=== PATIENT | female | born 1995 | race Caucasian/White ===

== ENCOUNTER 2018-07-30 16:34 | Inpatient (IN) | payer OTHER ==
--- NOTE | 2018-07-30 16:49 | PDOC ---
Rapid Medical Evaluation Chief Complaint: Abnormal Lab Results (Outside) Time Seen by Provider: 07/30/18 16:46 Medical Evaluation: Allergies Allergy/AdvReac Type Severity Reaction Status Date / Time No Known Allergies Allergy Verified 10/29/12 16:27 07/30/18 16:48 I have performed a brief in person evaluation at triage on this patient. CC: Anemia HPI: Pt was sent here by her PCP for a blood transfusion as she is "severely anemic." PE: Skin: clear Lungs: clear Heart: RRR MS: Moves all extremities without difficulty Neuro: Alert and oriented Psych: Appropriate affect I have ordered: basic labs with Type and Cross Pt will proceed to the main ED for further evaluation. Discharge Disposition - Diagnosis Anemia Qualifiers: Anemia type: unspecified type Qualified Code(s): D64.9 - Anemia, unspecified - Referrals - Patient Instructions - Post Discharge Activity
[2018-07-30 17:23] LABS: BASO % 1.5 % (0-2.0); HEMATOCRIT 21.7 % (32.4-45.2); LYMPH % 38.7 % (8-40); MCH 18.3 pg (25.7-33.7); MCHC 28.8 g/dl (32.0-36.0); MEAN CELL VOLUME 63.6 fl (80-96); MEAN PLT VOLUME 8.8 fl (7.5-11.1); MONO % 5.9 % (3.8-10.2); NEUT % 51.9 % (42.8-82.8); PLATELET COUNT 197 K/MM3 (134-434); RBC 3.42 M/mm3 (3.60-5.2); WHITE BLOOD COUNT 4.5 K/mm3 (4.0-10.0)
[2018-07-30 17:26] LABS: HEMOGLOBIN 6.3 GM/dL (10.7-15.3)
[2018-07-30 17:45] LABS: ALBUMIN 4.5 g/dl (3.4-5.0); ALK PHOS 45 U/L (45-117); ANION GAP 10 MMOL/L (8-16); BILIRUBIN,TOTAL 0.7 mg/dL (0.2-1); BLOOD UREA NITROGEN 10 mg/dL (7-18); CALCIUM 9.6 mg/dL (8.5-10.1); CHLORIDE 104 mmol/L (98-107); CO2 23 mmol/L (21-32); CREATININE 0.6 mg/dL (0.55-1.3); GLUCOSE,RANDOM 73 mg/dL (74-106); POTASSIUM 3.7 mmol/L (3.5-5.1); SGOT/AST 18 U/L (15-37); SGPT/ALT 17 U/L (13-61); SODIUM 137 mmol/L (136-145); TOT PROT 8.2 g/dl (6.4-8.2)
[2018-07-30 19:56] LABS: ANISOCYTOSIS 3+; MACROCYTOSIS 2+; PLATELET ESTIMATE ADEQUATE
--- NOTE | 2018-07-31 10:34 | EKG ---
Test Reason : Blood Pressure : / mmHG Vent. Rate : 077 BPM Atrial Rate : 077 BPM P-R Int : 142 ms QRS Dur : 074 ms QT Int : 412 ms P-R-T Axes : 049 064 035 degrees QTc Int : 466 ms NORMAL SINUS RHYTHM NORMAL ECG NO PREVIOUS ECGS AVAILABLE Confirmed by MARIYA ORDAZ, MARILUZ ([id number]) on 07/31/2018 10:33:59 AM Referred By: Confirmed By:MARILUZ MERAZ MD
--- NOTE | 2018-07-31 13:40 | ECHO ---
Name: WAGNER MONTEZ Exam:Adult Echocardiogram Study Date: 07/31/2018 09:22 AM Age: 23 yrs Reason For Study: Chest pain Height: 63 in Weight: 114 lb BSA: 1.5 m2 MMode/2D Measurements & Calculations IVSd: 0.68 cm Ao root diam: 2.1 cm LVIDd: 4.9 cm LA dimension: 3.1 cm LVIDs: 3.1 cm LVPWd: 0.77 cm EDV(Teich): 113.7 ml LVOT diam: 1.9 cm ESV(Teich): 38.1 ml Doppler Measurements & Calculations MV E max rell: 80.5 cm/sec Ao V2 max: 129.9 cm/sec MV A max rell: 50.3 cm/sec Ao max P.8 mmHg MV E/A: 1.6 Ao V2 mean: 95.8 cm/sec MV dec time: 0.15 sec Ao mean P.0 mmHg Ao V2 VTI: 28.7 cm ADEEL(I,D): 1.8 cm2 ADEEL(V,D): 1.8 cm2 LV V1 max P.7 mmHg MR max rell: 440.9 cm/sec LV V1 mean P.2 mmHg MR max P.7 mmHg LV V1 max: 82.7 cm/sec LV V1 mean: 49.9 cm/sec LV V1 VTI: 18.1 cm SV(LVOT): 52.3 ml TR max rell: 189.7 cm/sec TR max P.7 mmHg Med Peak E' Rell: 12.7 cm/sec Med E/e': 6.4 Lat Peak E' Rell: 17.5 cm/sec Lat E/e': 4.6 Procedure A two-dimensional transthoracic echocardiogram with color flow and Doppler was performed. The study w as technically difficult with many images being suboptimal in quality. Left Ventricle The left ventricular size, thickness and function are normal. The left ventricular ejection fraction is normal. Left Ventricular Filling pattern is normal for age. Regional wall motion abnormalities cannot be excluded due to limited visualization. Right Ventricle The right ventricle is not well visualized. Atria Normal left and right atrial size and function. Mitral Valve The mitral valve is not well visualized. There is no mitral valve stenosis. There is moderate to lynda re mitral regurgitation. Tricuspid Valve The tricuspid valve is not well visualized. There is no tricuspid stenosis. There is trace tricuspid regurgitation. Right ventricular systolic pressure is normal. Aortic Valve The aortic valve is not well visualized. No hemodynamically significant valvular aortic stenosis. No aortic regurgitation is present. Pulmonic Valve The pulmonic valve is not well visualized. Great Vessels The aortic root is normal size. Pericardium/Pleura There is no pericardial effusion. Interpretation Summary Regional wall motion abnormalities cannot be excluded due to limited visualization. There is moderate to severe mitral regurgitation. Right ventricular systolic pressure is normal. The left ventricular size, thickness and function are normal The left ventricular ejection fraction is normal. Left Ventricular Filling pattern is normal for age. The study was technically difficult with many images being suboptimal in quality. MD Tai Cardenas 07/31/2018 01:40 PM
[2018-07-31] MEDS ORDERED: MAG HYDROX/AL HYDROX/SIMETH 30 ML UNIT-DOSE CUP ONE (14:25)
--- NOTE | 2018-07-31 16:08 | HP ---
Admitting History and Physical - Past Medical History ...LMP: 12/14/17 ...: No - Smoking History Smoking history: Never smoked Have you smoked in the past 12 months: No Aproximately how many cigarettes per day: 0 - Alcohol/Substance Use Hx Alcohol Use: Yes Home Medications - Allergies Allergies/Adverse Reactions: Allergies Allergy/AdvReac Type Severity Reaction Status Date / Time No Known Allergies Allergy Verified 07/30/18 16:47 - Home Medications Home Medications: Ambulatory Orders No Home Medications 0 dose .ROUTE UTDICT 10/29/12 Physical Examination Vital Signs: Vital Signs Temperature 98.6 F 07/31/18 15:37 Pulse Rate 90 07/31/18 15:37 Respiratory Rate 18 07/31/18 15:42 Blood Pressure 106/72 07/31/18 15:37 O2 Sat by Pulse Oximetry (%) 98 07/31/18 15:42 Labs: CBC, BMP 07/30/18 17:09 07/30/18 17:09
--- NOTE | 2018-07-31 17:02 | PN ---
Teaching Attending Note Name of Resident: Franco Plascencia ATTENDING PHYSICIAN STATEMENT I saw and evaluated the patient. I reviewed the resident's note and discussed the case with the resident. I agree with the resident's findings and plan as documented. SUBJECTIVE: Patient seen and examined 23 year old with iron deficiency Denies blood per rectum or melena. Has menses 3-4 x per year - LMP in December 2017 . Menses x 7 days with clots. Has migraines and recently with increased headaches. Takes 2 advil - 1-2 x daily with headaches. Most recently 4-5 x per week/ Presented with increasing shortness of breath and fatigue. Presented with Hb- 6.3 an has received 2 units of packed cells. Has ferritin of 3. Family history -negative for hematologic disorder. Grandmother with cervical cancer. ROS - positive for SOB, dyspnea, fatigue; Irregular periods Last Vital Signs Temp Pulse Resp BP Pulse Ox 98.6 F 90 18 106/72 98 07/31/18 15:37 07/31/18 15:37 07/31/18 15:42 07/31/18 15:37 07/31/18 15:42 HEENT: MERCY, EOM Intact Oropharynx: No thrush, No mucositis Neck: Supple Nodes: Without adenopathy Breasts: Without masses Cor: RSR, No murmurs, No gallops Lungs: Clear to P&A Abd: Soft, Normal bowel sounds, No organomegaly Ext:No significant edema Skin: No rashes, Integument intact CBC, BMP 07/30/18 17:09 07/30/18 17:09 Abnormal Lab Results 07/30/18 07/30/18 07/30/18 17:09 17:09 17:09 RBC 3.42 L Hgb 6.3 L* Hct 21.7 L MCV 63.6 L MCH 18.3 L MCHC 28.8 L RDW 23.0 H Random Glucose 73 L Ferritin Serum Folate Crossmatch See Detail 07/30/18 17:09 RBC Hgb Hct MCV MCH MCHC RDW Random Glucose Ferritin 3.1 L Serum Folate 36 H Crossmatch Impression: Fe++ deficiency - unclear etiology To check celiac panel. For GI assessment Will need VISUAL DESIGN LEAD for possibility of polycystic ovaries. Additional screening for TFT's, JOSH, LDH, haptoglobin. After above assessment, - can give IV Venofer. OBJECTIVE: ASSESSMENT AND PLAN:
--- NOTE | 2018-07-31 18:01 | CONSULT ---
Consultation: REQUESTING PROVIDER: CONSULT REQUEST: We have been asked to medically evaluate this patient for heme/ onc HISTORY OF PRESENT ILLNESS: 23 y/o F w/PMH of irregular menses presented to the ER after finding low Hgb by her PCP. She has had progressively worsening dyspnea on exertion and fatigue over the last month and saw her PCP for this complaint and was found to have low Hgb and sent to the ER. She also reported some light-headedness upon standing. She also reports TATE which has occured more frequently recently and has been taking 400mg advil every other day recently. Also reports having abd pain 10-15min after eating and having acid reflux tabitha with fatty foods. Her LMP was 12/2017 and she only has menses approx 2-3 times per year and is following with COUNTER HELP. She has never been diagnosed with anemia. She has been eating a regular diet and has not had PICA symptoms including eating ice. She received 2 units PRBC and is currently feeling better. She denies N/V/F but has felt colder than usual. She also denies CP, SOB at rest, blood in stool or urine. PMH: Oligomenorrhea PSHx: None SH: Denies smoking and drugs. Social alcohol use. Works in dental office. FH: No hx of heme d/o in mother or father. Grandmother with cervical ca. Allergies: NKDA REVIEW OF SYSTEMS: CONSTITUTIONAL: +fatigue Absent: fever, chills CARDIOVASCULAR: +lightheadedness Absent: chest pain, peripheral edema RESPIRATORY: +dyspnea on exertion Absent: cough GASTROINTESTINAL: +abd pain Absent: nausea, vomiting, diarrhea, constipation, melena, hematochezia GENITOURINARY: Absent: dysuria NEUROLOGIC: +headache Absent: mental status changes PHYSICAL EXAMINATION Vital Signs - 24 hr 07/31/18 07/31/18 07/31/18 07:40 12:00 14:38 Temperature 98.2 F 98.1 F 98.4 F Pulse Rate 82 Pulse Rate [ 77 74 Left Radial] Respiratory 16 Rate Blood Pressure 104/50 L Blood Pressure 126/75 129/72 [Left Arm] O2 Sat by Pulse 98 98 Oximetry (%) 07/31/18 07/31/18 15:37 15:42 Temperature 98.6 F Pulse Rate 90 Pulse Rate [ Left Radial] Respiratory 18 18 Rate Blood Pressure 106/72 Blood Pressure [Left Arm] O2 Sat by Pulse 98 Oximetry (%) GENERAL: Awake, alert, and fully oriented, in no acute distress. HEAD: Normal with no signs of trauma. EYES: Pupils equal, round and reactive to light, extraocular movements intact, pale conjunctiva. EARS, NOSE, THROAT: Ears normal, nares patent, oropharynx clear without exudates. Pallor of lips. NECK: Normal range of motion, supple without lymphadenopathy LUNGS: Breath sounds equal, clear to auscultation bilaterally. HEART: Regular rate and rhythm, normal S1 and S2 without murmur ABDOMEN: Soft, nontender, not distended, normoactive bowel sounds, no guarding, no rebound, no masses. LOWER EXTREMITIES: warm, well-perfused. No peripheral edema. NEUROLOGICAL: Cranial nerves II-XII grossly intact. Normal speech. Gait not observed. PSYCHIATRIC: Cooperative. Good eye contact. Appropriate mood and affect. SKIN: Warm, dry Breast: No masses noted. No axillary LAD. Laboratory Results - last 24 hr 07/30/18 07/30/18 07/30/18 17:09 17:09 17:09 Hypochromia 3+ Platelet Estimate Adequate Platelet Comment No clumping noted Anisocytosis 3+ Microcytosis 2+ Macrocytosis 2+ Retic Count Ferritin Vitamin B12 Serum Folate Urine HCG, Qual Stool Occult Blood Anti-A Titer Cancelled Blood Type A POSITIVE Cancelled Antibody Screen Negative Cancelled Crossmatch See Detail 07/30/18 07/30/18 07/30/18 17:09 17:09 17:39 Hypochromia Platelet Estimate Platelet Comment Anisocytosis Microcytosis Macrocytosis Retic Count Ferritin 3.1 L Vitamin B12 571 Serum Folate 36 H Urine HCG, Qual Stool Occult Blood Negative Anti-A Titer Blood Type Antibody Screen Crossmatch 07/30/18 07/30/18 07/31/18 17:56 20:06 08:35 Hypochromia Platelet Estimate Platelet Comment Anisocytosis Microcytosis Macrocytosis Retic Count 1.26 Ferritin Vitamin B12 Serum Folate Urine HCG, Qual Negative Stool Occult Blood Anti-A Titer Blood Type A POSITIVE Antibody Screen Crossmatch ASSESSMENT/PLAN: 23 y/o F w/PMH of oligomenorrhea presented to the ER after finding low Hgb by her PCP. Found to have Hgb 6.3 and low ferritin. Symptomatic Microcytic anemia -Has component of iron deficiency anemia most likely. Still pending further iron studies. -Will also check TSH, JOSH, LDH, Haptoglobin -Consider GI eval -COUNTER HELP eval for oligomenorrhea -IV iron after above recommendations Dispo: We will continue to follow the patient. Thank you for this consultative opportunity. Visit type - Emergency Visit Emergency Visit: Yes ED Registration Date: 07/30/18 Care time: The patient presented to the Emergency Department on the above date and was hospitalized for further evaluation of their emergent condition. - New Patient This patient is new to me today: Yes Date on this admission: 07/31/18 - Critical Care Critical Care patient: No
[2018-07-31 18:25] VITALS: BMI 20.4
[2018-08-01 04:11] LABS: SERUM IRON SATURATION > 97 % (15-55); TOTAL IRON BINDING CAPACITY < 508 ug/dL (250-450); UIBC < 17 ug/dL (131-425)
[2018-08-01 07:25] LABS: BASO % 2.1 % (0-2.0); EOS % 4.9 % (0-4.5); HEMATOCRIT 27.9 % (32.4-45.2); HEMOGLOBIN 8.7 GM/dL (10.7-15.3); LYMPH % 47.4 % (8-40); MCH 21.1 pg (25.7-33.7); MCHC 31.1 g/dl (32.0-36.0); MEAN CELL VOLUME 67.6 fl (80-96); MEAN PLT VOLUME 8.5 fl (7.5-11.1); MONO % 11.3 % (3.8-10.2); NEUT % 34.3 % (42.8-82.8); PLATELET COUNT 150 K/MM3 (134-434); RBC 4.12 M/mm3 (3.60-5.2); RDW 25.4 % (11.6-15.6); WHITE BLOOD COUNT 4.7 K/mm3 (4.0-10.0)
[2018-08-01 08:05] LABS: ALBUMIN 3.9 g/dl (3.4-5.0); ALK PHOS 44 U/L (45-117); ANION GAP 6 MMOL/L (8-16); BILIRUBIN,TOTAL 0.6 mg/dL (0.2-1); BLOOD UREA NITROGEN 11 mg/dL (7-18); CALCIUM 9.2 mg/dL (8.5-10.1); CHLORIDE 106 mmol/L (98-107); CO2 24 mmol/L (21-32); CREATININE 0.5 mg/dL (0.55-1.3); GLUCOSE,RANDOM 81 mg/dL (74-106); LDH 140 U/L (84-246); POTASSIUM 4.1 mmol/L (3.5-5.1); SGOT/AST 14 U/L (15-37); SGPT/ALT 13 U/L (13-61); SODIUM 136 mmol/L (136-145); TOT PROT 7.4 g/dl (6.4-8.2)
[2018-08-01 10:38] VITALS: BP 103/57; PULSE 85; TEMP 98
--- NOTE | 2018-08-01 12:04 | PN ---
Physical Exam: SUBJECTIVE: Patient seen and examined at bedside. Had some dizziness overnight when getting up but otherwise no other complaints. OBJECTIVE: Vital Signs Period Temp Pulse Resp BP Sys/Muro Pulse Ox Last 24 Hr 97.9 F-98.6 F 72-90 16-20 101-106/50-73 98-99 GENERAL: Awake, alert, and fully oriented, in no acute distress. HEAD: Normal with no signs of trauma. EYES: Pupils equal, round and reactive to light, extraocular movements intact. EARS, NOSE, THROAT: Ears normal, nares patent, oropharynx clear without exudates. NECK: Normal range of motion, supple without lymphadenopathy LUNGS: Breath sounds equal, clear to auscultation bilaterally. HEART: Regular rate and rhythm, normal S1 and S2 without murmur ABDOMEN: Soft, nontender, not distended, normoactive bowel sounds, no guarding, no rebound, no masses. LOWER EXTREMITIES: warm, well-perfused. No peripheral edema. NEUROLOGICAL: Cranial nerves II-XII grossly intact. Normal speech. Gait not observed. PSYCHIATRIC: Cooperative. Good eye contact. Appropriate mood and affect. SKIN: Warm, dry Laboratory Results - last 24 hr 07/30/18 07/31/18 08/01/18 08:35 08:35 06:00 WBC 4.7 RBC 4.12 Hgb 8.7 L Hct 27.9 L D MCV 67.6 L MCH 21.1 L D MCHC 31.1 L RDW 25.4 H Plt Count 150 D MPV 8.5 Absolute Neuts (auto) 1.6 Neutrophils % 34.3 L D Lymphocytes % 47.4 H D Monocytes % 11.3 H D Eosinophils % 4.9 H D Basophils % 2.1 H Nucleated RBC % 0 Haptoglobin 53 Sodium Potassium Chloride Carbon Dioxide Anion Gap BUN Creatinine Creat Clearance w eGFR Random Glucose Calcium Iron 491 H TIBC < 508 H Iron Saturation > 97 H Total Bilirubin AST ALT Alkaline Phosphatase LD Total Total Protein Albumin TSH 08/01/18 06:00 WBC RBC Hgb Hct MCV MCH MCHC RDW Plt Count MPV Absolute Neuts (auto) Neutrophils % Lymphocytes % Monocytes % Eosinophils % Basophils % Nucleated RBC % Haptoglobin Sodium 136 Potassium 4.1 Chloride 106 Carbon Dioxide 24 Anion Gap 6 L BUN 11 Creatinine 0.5 L Creat Clearance w eGFR 152.90 Random Glucose 81 Calcium 9.2 Iron TIBC Iron Saturation Total Bilirubin 0.6 AST 14 L ALT 13 Alkaline Phosphatase 44 L LD Total 140 Total Protein 7.4 Albumin 3.9 TSH 1.11 ASSESSMENT/PLAN: 23 y/o F w/PMH of oligomenorrhea presented to the ER after finding low Hgb by her PCP. Found to have Hgb 6.3 and low ferritin. Symptomatic Microcytic anemia -Has component of iron deficiency anemia most likely. -TSH nl, negative haptoglobin, LDH, retic -Still pending Hgb electrophoresis, JOSH, celiac panel -Consider GI eval -LOCK MASTER eval for oligomenorrhea -IV iron after above recommendations Visit type - Emergency Visit Emergency Visit: Yes ED Registration Date: 07/30/18 Care time: The patient presented to the Emergency Department on the above date and was hospitalized for further evaluation of their emergent condition. - New Patient This patient is new to me today: No - Critical Care Critical Care patient: No
[2018-08-02 13:17] LABS: HGB SOLUBILITY Negative (Negative); Hgb A 98.5 % (96.4-98.8); Hgb C 0 % (0.0); Hgb F 0 % (0.0-2.0); Hgb S 0 % (0.0)
[2018-08-02 18:09] LABS: GLIADIN ANTIBODY IGA 4 units (0-19); GLIADIN ANTIBODY IGG 2 units (0-19); TRANSGLUTAMINASE IGG < 2 U/mL (0-5)
== END 2018-08-01 18:18 | disposition home or self-care (01) | DRG 663 ==
LOC: JER 16:34 → JERBED 20:08 → J6S 07-31 15:15
PROVIDERS: ADMIT Internal Medicine; ATTEND Internal Medicine
PROC: 30233N1 Transfusion of Nonautologous Red Blood Cells into Peripheral Vein, Percutaneous Approach (ICD-10-PCS; principal; 2018-07-30)
DX: D50.9 Iron deficiency anemia, unspecified (principal); I95.1 Orthostatic hypotension; G43.909 Migraine, unspecified, not intractable, without status migrainosus
CPT/HCPCS: 36415; 36430; 36511; 76856-TC; 80053; 82272; 82607; 82728; 82746; 82784; 83010; 83021; 83516; 83540; 83550; 83615; 84443; 84703; 85025; 85044; 85660; 86038; 86850; 86900; 86901; 86922; 93005; 93010; 93306-TC; 99285-25; P9038; P9058

== ENCOUNTER 2018-12-06 16:37 | Emergency (ER) | payer SELFPAY ==
[2018-12-06 16:42] VITALS: BMI 44.9
[2018-12-06] MEDS ORDERED: SODIUM CHLORIDE 1,000 ML IV STA (17:43)
--- NOTE | 2018-12-06 17:43 | PDOC ---
History of Present Illness - General Chief Complaint: Vaginal Bleeding Stated Complaint: VAGINAL BLEEDING Time Seen by Provider: 12/06/18 17:03 History Source: Patient, Old Records Exam Limitations: No Limitations - History of Present Illness Initial Comments: 12/06/18 18:00 HISTORY OF PRESENT ILLNESS: This is a 23-year-old woman with significant medical history of anemia and orthostatic hypertension presents emergency Department for evaluation of increased dyspnea as well as intermittent heavy vaginal bleeding for the past 2 months. Patient reports increased dyspnea on exertion going approximately one block before becoming short of breath. Patient also notes that over the past 2 months she's had vaginal bleeding through a tampon and then overnight head saturating her clothing in under an hour. This bleeding lasts for up to 2 days and then spontaneously resolves. The bleeding will be gone for 1-2 days and then will restart. There has been no pattern to this. Patient reports she has had irregular periods since menarche at age 12. Previously patient has tried contraception to control her periods using multiple methods without success. Patient has an appointment with her stone lathe operator on the of this month for reevaluation of her periods. No recent travel or sick contacts. PAST MEDICAL HISTORY: Denies past medical history SURGICAL HISTORY: Denies ALLERGIES: No known drug allergies REVIEW OF SYSTEMS General/Constitutional: Denies fever or chills. Denies weakness, weight change. HEENT: Denies change in vision. Denies ear pain or discharge. Denies sore throat. Cardiovascular: see HPI Respiratory: Denies cough, wheezing, or hemoptysis. Gastrointestinal: Denies nausea, vomiting, diarrhea or constipation. Denies rectal bleeding. Genitourinary: Denies dysuria, frequency, or change in urination. Musculoskeletal: Denies joint or muscle swelling or pain. Denies neck or back pain. Skin and breasts: Denies rash or easy bruising. Neurologic: Denies headache, vertigo, loss of consciousness, or loss of sensation. Psychiatric: Denies depression or anxiety. Endocrine: Denies increased thirst. Denies abnormal weight change. Hematologic/Lymphatic: see HPI Allergic/Immunologic: Denies hives or skin allergy. Denies latex allergy. PHYSICAL EXAM General Appearance: Well-appearing, appropriately dressed. No apparent distress , no intoxication. HEENT: EOMI, PERRLA, normal ENT inspection, normal voice, TMs normal, pharynx normal. (+)conjunctival pallor. No photophobia, scleral icterus. Respiratory/Chest: Lungs CTAB. No shortness of breath, chest tenderness, respiratory distress, accessory muscle use. No crackles, rales, rhonchi, stridor , wheezing, dullness Cardiovascular: Tachycardic with regular rate. S1, S2. No JVD, murmur. Vascular Pulses: Dorsalis-Pedis (R): 2+, Dorsalis-Pedis (L): 2+ Gastrointestinal/Abdominal: Normal bowel sounds. Abdomen soft, non-distended. No tenderness or rebound tenderness. No organomegaly, pulsatile mass, guarding, hernia, hepatomegaly, splenomegaly. 12/06/18 18:04 Past History - Past Medical History Allergies/Adverse Reactions: Allergies Allergy/AdvReac Type Severity Reaction Status Date / Time No Known Allergies Allergy Verified 07/30/18 16:47 Home Medications: Ambulatory Orders No Home Medications 0 dose .ROUTE UTDICT 10/29/12 Ferrous Sulfate 325 mg PO TID #90 tablet 08/01/18 Anemia: No COPD: No Disorders: Yes (Kidney stones many years ago) - Suicide/Smoking/Psychosocial Hx Smoking Status: No Smoking History: Never smoked Have you smoked in the past 12 months: No Number of Cigarettes Smoked Daily: 0 Information on smoking cessation initiated: No Hx Alcohol Use: No Drug/Substance Use Hx: No Substance Use Type: None Hx Substance Use Treatment: No *Physical Exam - Vital Signs Last Vital Signs Temp Pulse Resp BP Pulse Ox 98.7 F 61 18 118/83 100 12/06/18 16:39 12/06/18 16:39 12/06/18 16:39 12/06/18 16:39 12/06/18 16:39 - Physical Exam Comments:: 12/06/18 19:47 INESSA Michelle at bedside for senior product development engineer. Female Pelvic Exam: positive: normal external exam, cervical os closed, normal adnexa, normal size ovaries, vaginal bleeding. negative: CMT, discharge ED Treatment Course - LABORATORY CBC & Chemistry Diagram: 12/06/18 18:30 12/06/18 18:30 Medical Decision Making - Medical Decision Making 12/06/18 18:06 A/P: 23-year-old female with vaginal bleeding and shortness of breath This patient is short of breath with vaginal bleeding and noted to have pale conjunctiva this is likely anemia. I'll perform an anemia workup and patient is aware potential need for blood transfusion. 12/06/18 21:59 Transvaginal ultrasound as read by Dr. Tapia: Endometrial thickness is 0.7 cm without interval change comparison was transvaginal pelvic ultrasound 07/31/18. We'll restart her no definite abnormality. There is no free peritoneal fluid within the visualized lower pelvis. Impression: No definite sonographic abnormalities identified. Given normal laboratory testing and patient is currently free of symptoms feel safe to discharge patient home to follow-up with her stone lathe operator as previously scheduled on the . Patient has requested INSURANCE WRITER services here and I will give referrals. I discussed the physical exam findings, ancillary test results and final diagnoses with the patient. I answered all of the patient's questions. The patient was satisfied with the care received and felt comfortable with the discharge plan and treatment plan. The patient will call their primary care physician within 24 hours to arrange follow-up and will return to the Emergency Department with any new, persistent or worsening symptoms. Portions of this note have been documented using voice recognition software. As a result, errors may occur in the section beamer process. Effort has been made to correct all grammatical and section beamer error, but some may have been missed. *DC/Admit/Observation/Transfer Diagnosis at time of Disposition: Abnormal uterine bleeding (AUB) - Discharge Dispostion Disposition: HOME Condition at time of disposition: Stable Decision to Admit order: No - Referrals Referrals: Иван Collins MD [Primary Care Provider] - Sheila Levine DO [Staff Physician] - Joaquín Corley MD [Staff Physician] - - Patient Instructions Additional Instructions: You have been given a referral to INSURANCE WRITER specialist here at [facility]. Keep your appointment with your land planner should you choose to. Return to emergency department for any new or worsening symptoms. Thank you very much for choosing us to provide your emergent health care needs. - Post Discharge Activity
--- NOTE | 2018-12-06 18:26 | PDOC ---
*Physical Exam - Vital Signs Last Vital Signs Temp Pulse Resp BP Pulse Ox 98.7 F 61 18 118/83 100 12/06/18 16:39 12/06/18 16:39 12/06/18 16:39 12/06/18 16:39 12/06/18 16:39 ED Treatment Course - LABORATORY CBC & Chemistry Diagram: 12/06/18 18:30 12/06/18 18:30 Medical Decision Making - Medical Decision Making 12/06/18 18:24 23 yo F presenting with a complaint of vaginal bleeding Pt is saturating 1 pad per hour and has done so for 2 months Pt is now weak, notes dyspnea on exertion Agree with TANVIR history and physical examination Agree with plan to check labs and possibly transfuse Labs pending Agree with plan per SUPERVISOR LABOR GANG Kevin 12/06/18 19:09 Laboratory Tests 12/06/18 12/06/18 12/06/18 18:30 18:30 18:30 WBC 5.9 Hgb 10.6 L Hct 33.6 D Plt Count 340 D INR 1.10 H BUN 9.2 Creatinine 0.7 Signed out to overnight attending Clinical impression: vaginal bleeding, initial presentation *DC/Admit/Observation/Transfer Diagnosis at time of Disposition: Abnormal uterine bleeding (AUB) - Discharge Dispostion Disposition: HOME Condition at time of disposition: Stable - Referrals Referrals: Sheila Levine DO [Staff Physician] - Joaquín Corley MD [Staff Physician] - Иван Collins MD [Primary Care Provider] - - Patient Instructions Additional Instructions: You have been given a referral to FLOOR SPECIALIST specialist here at [facility]. Keep your appointment with your yield clerk should you choose to. Return to emergency department for any new or worsening symptoms. Thank you very much for choosing us to provide your emergent health care needs. - Post Discharge Activity
[2018-12-06 18:37] LABS: EOS % 1.6 % (0-4.5); HEMATOCRIT 33.6 % (32.4-45.2); HEMOGLOBIN 10.6 GM/dL (10.7-15.3); LYMPH % 23.9 % (8-40); MCH 26.1 pg (25.7-33.7); MCHC 31.5 g/dl (32.0-36.0); MEAN CELL VOLUME 83.1 fl (80-96); MEAN PLT VOLUME 8.6 fl (7.5-11.1); MONO % 7.4 % (3.8-10.2); NEUT % 66.1 % (42.8-82.8); PLATELET COUNT 340 K/MM3 (134-434); RBC 4.04 M/mm3 (3.60-5.2); RDW 17.6 % (11.6-15.6); WHITE BLOOD COUNT 5.9 K/mm3 (4.0-10.0)
[2018-12-06 18:47] LABS: INR 1.1 (0.83-1.09)
[2018-12-06 19:04] LABS: ALBUMIN 4.6 g/dl (3.4-5.0); BILIRUBIN,TOTAL 0.4 mg/dL (0.2-1); BLOOD UREA NITROGEN 9.2 mg/dL (7-18); CALCIUM 10.1 mg/dL (8.5-10.1); CREATININE 0.7 mg/dL (0.55-1.3); POTASSIUM 3.7 mmol/L (3.5-5.1); TOT PROT 8.3 g/dl (6.4-8.2)
[2018-12-06 19:28] LABS: PH,URINE 7.5 (5.0-8.0); URINE APPEARANCE Clear; URINE BILIRUBIN Negative (NEGATIVE); URINE COLOR Yellow; URINE GLUCOSE (UA) Negative (NEGATIVE); URINE KETONE Negative (NEGATIVE); URINE LEUK ESTERASE Negative (NEGATIVE); URINE NITRITE Negative (NEGATIVE); URINE PROTEIN 1+ (NEGATIVE)
[2018-12-06 19:41] LABS: EPI CELLS 6.2 /HPF (0-5/HPF); HYALINE CASTS 4.87 /lpf (0-8); URINE BACTERIA 61.8 /hpf (NEGATIVE); URINE RBC 106.2 /hpf (0-4); URINE WBC 3.8 /hpf (0-5)
[2018-12-06 23:23] VITALS: BP 94/55; PULSE 76; TEMP 98
--- NOTE | 2018-12-08 17:05 | EKG ---
Test Reason : Blood Pressure : / mmHG Vent. Rate : 091 BPM Atrial Rate : 091 BPM P-R Int : 150 ms QRS Dur : 078 ms QT Int : 386 ms P-R-T Axes : 053 063 022 degrees QTc Int : 474 ms NORMAL SINUS RHYTHM NORMAL ECG WHEN COMPARED WITH ECG OF 30-JUL-2018 17:48, NO SIGNIFICANT CHANGE WAS FOUND Confirmed by ROMERO DELGADO MD ([id number]) on 12/08/2018 5:05:36 PM Referred By: Confirmed By:ROMERO DELGADO MD
== END 2018-12-06 22:35 | disposition home or self-care (01) ==
LOC: JER 16:37
PROC: 3E0337Z Introduction of Electrolytic and Water Balance Substance into Peripheral Vein, Percutaneous Approach (ICD-10-PCS; principal; 2018-12-06)
DX: N93.8 Other specified abnormal uterine and vaginal bleeding (principal); R06.09 Other forms of dyspnea
CPT/HCPCS: 36415; 76830-TC; 80053; 81003; 84703; 85025; 85044; 85610; 86850; 86870; 86900; 86901; 86902; 93005; 93010; 99283-25; J7030